=== PATIENT | female | born 1935 | race Two or more races ===

== ENCOUNTER 2017-08-10 13:59 | Inpatient (IN) | payer MEDICARE, BC ==
[~2017-08-10] VITALS: Ht 162.6 cm; Wt 49.9 kg
[~2017-08-10 13:59] MED LIST: ACTOS15 MG ORAL; CIMZIA400 MG SQ; DOXAZOSIN MESYLA4 MG ORAL; GABAPENTIN300 MG ORAL; LEFLUNOMIDE20 MG PO; METFORMIN HCL500 M1 ORAL; PROPYLTHIOURACIL ORAL
[2017-08-10 14:43] VITALS: BP 157/111
[2017-08-10 14:58] LABS: BASOPHILS % (AUTO) 1.1 % (0.0-2.0); EOSINOPHILS % (AUTO) 0.1 % (0.0-3.0); HEMATOCRIT 44.7 % (37.0-47.0); HEMOGLOBIN 14.7 G/DL (12.0-16.0); LYMPHOCYTES % (AUTO) 10.8 % (20.0-45.0); MEAN CORPUSCULAR VOLUME 89 FL (80-99); MONOCYTES % (AUTO) 8.1 % (1.0-10.0); NEUTROPHILS % (AUTO) 79.9 % (45.0-75.0); PLATELET COUNT 237 K/UL (150-450); RED BLOOD COUNT 5.03 M/UL (4.20-5.40); WHITE BLOOD COUNT 12.2 K/UL (4.8-10.8)
[2017-08-10 15:09] LABS: INR 0.9 (0.9-1.1)
[2017-08-10] MEDS ORDERED: LORazepam Inj 2mg/ml 1ml IV ONE ×2 (15:15→18:30)
[2017-08-10 15:29] LABS: ANION GAP 9 mmol/L (5-15); BLOOD UREA NITROGEN 16 mg/dL (7-18); CALCIUM 9.2 MG/DL (8.5-10.1); CARBON DIOXIDE 28 MMOL/L (21-32); CHLORIDE 104 MMOL/L (98-107); CREATININE 0.6 MG/DL (0.55-1.30); POTASSIUM 3.5 MMOL/L (3.5-5.1); SODIUM 141 MMOL/L (136-145)
[2017-08-10 15:42] LABS: ALANINE AMINOTRANSFERASE 28 U/L (12-78); ALBUMIN 3.8 G/DL (3.4-5.0); ALBUMIN/GLOBULIN RATIO 1.2 (1.0-2.7); ALKALINE PHOSPHATASE 54 U/L (46-116); ASPARTATE AMINO TRANSFERASE 20 U/L (15-37); BILIRUBIN,TOTAL 0.3 MG/DL (0.2-1.0); CKMB 3.9 NG/ML (0.0-3.6); CREATINE KINASE 159 U/L (26-308)
[2017-08-10 15:58] LABS: APPEARANCE,URINE CLEAR; BILIRUBIN, URINE NEGATIVE (NEGATIVE); COLOR,URINE PALE YELLOW; GLUCOSE, URINE (UA) 4+ (NEGATIVE); KETONES,URINE NEGATIVE (NEGATIVE); LEUKOCYTE ESTERASE ,URINE NEGATIVE (NEGATIVE); NITRITE,URINE NEGATIVE (NEGATIVE); PH,URINE 5 (4.5-8.0); PROTEIN,URINE 2+ (NEGATIVE); UROBILINOGEN,URINE NORMAL MG/DL (0.0-1.0)
[2017-08-10] MEDS ORDERED: lidocaine 5% patch (15:58)
[2017-08-10] MEDS ORDERED: MELOXICAM15 MG PO (15:58)
[2017-08-10] MEDS ORDERED: LANTUS SOL100 UNIT/1 SUBQ (15:58)
[2017-08-10] MEDS ORDERED: LISPRO SQ (15:58)
[2017-08-10] MEDS ORDERED: QUETIAPINE PO (15:58)
[2017-08-10] MEDS ORDERED: TYLENOL EXTRA500 MG ORAL (15:58)
[2017-08-10] MEDS ORDERED: HUMALOG SQ (15:58)
[2017-08-10] MEDS ORDERED: GLYXAMBI 10 MG1 EACH PO (15:58)
[2017-08-10] MEDS ORDERED: NAMENDA10 MG ORAL (15:58)
--- NOTE | 2017-08-10 16:25 | Diagnostic Imaging Report ---
Indication: Chest pain Technique: One view of the chest Comparison: none Findings: Bilateral lower lung hazy opacities may in part be accounted for by overlying soft tissue, but are suspicious for bilateral infiltrates. There is generalized interstitial prominence, which may be on the basis of senescent changes. The heart size is normal. The pleural spaces are grossly clear. Impression: Suspect bilateral basilar infiltrates. Correlate with clinical findings Other findings as noted
[2017-08-10 16:58] VITALS: BP 148/98
[2017-08-10 17:48] VITALS: BP 144/98
[2017-08-10] MEDS ORDERED: Aspirin Baby 81mg ORAL SCH (18:00)
[2017-08-10] MEDS: D5 1/2NS w/KCl 20mEq 1,000 ML IV SCH (18:36)
[2017-08-10 19:03] VITALS: BP 135/73
[2017-08-10 20:00] VITALS: BP 148/70
--- NOTE | 2017-08-10 20:13 | Emergency Room Report ---
History of Present Illness General Chief Complaint: Altered Level of Consciousness Source: Patient Present Illness HPI This patient is brought in from home. She is brought in by EMS. Per report, the caregiver called EMS for change in the patient's mental status. The patient herself is unable to give a history. Patient has a history of dementia. Patient is complaining of allover body pain. She has no other complaints. She is alert. She is demanding to leave. There is no other history available. Allergies: Coded Allergies: No Known Allergies (Unverified , 08/10/17) Patient History Past Medical History: see triage record, DM Social History: Denies: smoking, alcohol use, drug use Reviewed Nursing Documentation: PMH: Agreed; PSxH: Agreed Nursing Documentation-PMH Hx Diabetes: Yes Review of Systems All Other Systems: negative except mentioned in HPI Physical Exam Vital Signs Date Time Temp Pulse Resp B/P (MAP) Pulse Ox O2 Delivery O2 Flow Rate FiO2 08/10/17 13:51 97.8 114 20 152/92 94 Room Air 97.9 Sp02 EP Interpretation: reviewed, normal General Appearance: no apparent distress, alert, GCS 15, non-toxic Head: normocephalic, atraumatic Eyes: bilateral eye normal inspection, bilateral eye PERRL ENT: hearing grossly normal, normal pharynx, no angioedema, normal voice Neck: full range of motion, supple/symm/no masses Respiratory: chest non-tender, lungs clear, normal breath sounds, no respiratory distress, no retraction, no accessory muscle use, speaking full sentences Cardiovascular #1: no edema, tachycardia Gastrointestinal: normal bowel sounds, non tender, soft, non-distended, no guarding, no rebound Rectal: deferred Musculoskeletal: back normal, gait/station normal, normal range of motion, non- tender Neurologic: alert, oriented x3, responsive, motor strength/tone normal, sensory intact, speech normal Psychiatric: judgement/insight normal, memory normal, mood/affect normal, no suicidal/homicidal ideation Skin: normal color, no rash, warm/dry, well hydrated Medical Decision Making Diagnostic Impression: Primary Impression: Hypoglycemia ER Course This patient presented with hypoglycemia. This likely contributed to the patient's altered mental status. She was given D50 and food. She is also given IV fluids. The patient's blood sugar remained stable after this in the emergency department. The patient was agitated. The patient's family did arrive and states that this is typical behavior for her with her dementia. I did not identify an infectious etiology. CT of the head showed no acute findings. Patient is admitted for further monitoring for hypoglycemia. Laboratory Tests Test 08/10/17 14:35 08/10/17 15:13 08/10/17 15:14 White Blood Count 12.2 K/UL (4.8-10.8) H Red Blood Count 5.03 M/UL (4.20-5.40) Hemoglobin 14.7 G/DL (12.0-16.0) Hematocrit 44.7 % (37.0-47.0) Mean Corpuscular Volume 89 FL (80-99) Mean Corpuscular Hemoglobin 29.2 PG (27.0-31.0) Mean Corpuscular Hemoglobin Concent 32.8 G/DL (32.0-36.0) Red Cell Distribution Width 15.0 % (11.6-14.8) H Platelet Count 237 K/UL (150-450) Mean Platelet Volume 6.2 FL (6.5-10.1) L Neutrophils (%) (Auto) 79.9 % (45.0-75.0) H Lymphocytes (%) (Auto) 10.8 % (20.0-45.0) L Monocytes (%) (Auto) 8.1 % (1.0-10.0) Eosinophils (%) (Auto) 0.1 % (0.0-3.0) Basophils (%) (Auto) 1.1 % (0.0-2.0) Prothrombin Time 9.8 SEC (9.30-11.50) Prothrombin Time INR 0.9 (0.9-1.1) PTT 24 SEC (23-33) Sodium Level 141 MMOL/L (136-145) Potassium Level 3.5 MMOL/L (3.5-5.1) Chloride Level 104 MMOL/L (98-107) Carbon Dioxide Level 28 MMOL/L (21-32) Anion Gap 9 mmol/L (5-15) Blood Urea Nitrogen 16 mg/dL (7-18) Creatinine 0.6 MG/DL (0.55-1.30) Estimate Glomerular Filtration Rate mL/min (>60) Glucose Level 49 MG/DL (74-106) L Lactic Acid Level 1.80 mmol/L (0.66-2.22) Calcium Level 9.2 MG/DL (8.5-10.1) Magnesium Level 1.7 MG/DL (1.8-2.4) L Total Bilirubin 0.3 MG/DL (0.2-1.0) Aspartate Amino Transferase (AST) 20 U/L (15-37) Alanine Aminotransferase (ALT) 28 U/L (12-78) Alkaline Phosphatase 54 U/L (46-116) Total Creatine Kinase 159 U/L (26-308) Creatine Kinase MB 3.9 NG/ML (0.0-3.6) H Creatine Kinase MB Relative Index 2.4 Troponin I 0.061 ng/mL (0.000-0.056) Total Protein 6.9 G/DL (6.4-8.2) Albumin 3.8 G/DL (3.4-5.0) Globulin 3.1 g/dL Albumin/Globulin Ratio 1.2 (1.0-2.7) Urine Opiates Screen Negative (NEGATIVE) Urine Barbiturates Screen Negative (NEGATIVE) Phencyclidine (PCP) Screen Negative (NEGATIVE) Urine Amphetamines Screen Negative (NEGATIVE) Urine Benzodiazepines Screen Negative (NEGATIVE) Urine Cocaine Screen Negative (NEGATIVE) Urine Marijuana (THC) Screen Negative (NEGATIVE) Urine Color Pale yellow Urine Appearance Clear Urine pH 5 (4.5-8.0) Urine Specific [place] 1.010 (1.005-1.035) Urine Protein 2+ (NEGATIVE) H Urine Glucose (UA) 4+ (NEGATIVE) H Urine Ketones Negative (NEGATIVE) Urine Occult Blood 2+ (NEGATIVE) H Urine Nitrite Negative (NEGATIVE) Urine Bilirubin Negative (NEGATIVE) Urine Urobilinogen Normal MG/DL (0.0-1.0) Urine Leukocyte Esterase Negative (NEGATIVE) Urine RBC 5-10 /HPF (0 - 2) H Urine WBC 2-4 /HPF (0 - 2) Urine Squamous Epithelial Cells Few /LPF (NONE/OCC) Urine Amorphous Sediment Few /LPF (NONE) H Urine Bacteria Moderate /HPF (NONE) H EKG Diagnostic Results Rate: tachycardiac Rhythm: other - S.tachycardia ST Segments: no acute changes Rhythm Strip Diag. Results EP Interpretation: yes Rate: 100's Rhythm: NSR, no PVC's, no ectopy Chest X-Ray Diagnostic Results Chest X-Ray Diagnostic Results : Chest X-Ray Ordered: Yes # of Views/Limited/Complete: 1 View Indication: Other EP Interpretation: No Interpretation: other - Bilateral basilar opacities? Impression: Other Electronically Signed by: Anabel Last Vital Signs Date Time Temp Pulse Resp B/P (MAP) Pulse Ox O2 Delivery O2 Flow Rate FiO2 08/10/17 19:03 97.9 91 18 135/73 95 Room Air 97.9 Status: improved Disposition: ADMITTED INPATIENT Condition: Serious Referrals: NON PHYSICIAN (PCP) KATIUSKA LOWRY D.O. Aug 10, 2017 20:13
[2017-08-11] VITALS: BP 161/99
[2017-08-11 04:00] VITALS: BP 155/93
--- NOTE | 2017-08-11 05:45 | Consultation ---
DATE OF CONSULTATION: 08/10/2017 CARDIOLOGY CONSULTATION CONSULTING PHYSICIAN: Victorino Waller M.D. REQUESTING PHYSICIAN: Franki Penny M.D. REASON FOR CONSULTATION: Elevated troponin level. HISTORY OF PRESENT ILLNESS: This is an 82-year-old female. She lives at home with family members. She apparently was confused and altered today, although does have some degree of dementia and behavioral abnormalities at baseline according to family members, but her behavior today was different. She apparently was much more withdrawn and confused and had been complaining earlier pain all over. On arrival to the emergency room after being brought in by EMS, she was alert at times and demanding to leave. At some point, she became more agitated and was given IV lorazepam by the emergency room staff. Her CAT scan of the brain revealed no acute process. Laboratories including troponin level was somewhat elevated prompting this consultation. The patient was also hypoglycemic on admission and started on a D5 drip. PAST MEDICAL HISTORY: Insulin-requiring diabetes mellitus, cerebrovascular disease with dementia and agitation, hypertension, rheumatoid arthritis, and peripheral neuropathy. MEDICATIONS: Prior to admission, reviewed and reconciled. ALLERGIES: None known. FAMILY HISTORY: Noncontributory. SOCIAL HISTORY: No apparent history of smoking, alcohol, or substance abuse. REVIEW OF SYSTEMS: Cannot be reliably obtained from the patient at this time. PHYSICAL EXAMINATION: GENERAL: Thin, frail female, in no acute distress, confused, but responsive. VITAL SIGNS: Blood pressure 152/92 in the emergency room with heart rate 114, respiratory rate 20, and she was afebrile. Presently, blood pressure is 135/73, heart rate 91, respiratory rate 18, afebrile, and oxygen saturation on room air is 95% to 100%. HEENT: Temporal wasting. Pale conjunctivae. Dry mucous membranes. No thrush. NECK: Supple. No adenopathy. LUNGS: Clear. No breast masses. CARDIAC: Regular rhythm and rate. Normal S1 and S2 with a fourth heart sound. ABDOMEN: Soft and nontender. EXTREMITIES: No edema. Some arthritic joint changes noted on the extremities. LABORATORY AND DIAGNOSTIC DATA: White count 12.2 and hemoglobin 14.7. Urinalysis with 5-10 red cells, 2-4 white cells, and moderate bacteria. Magnesium 1.7. Potassium 3.5, BUN 16, creatinine 0.6, and glucose 49. Troponin 0.061. Albumin 3.8. IMPRESSION: 1. Toxic metabolic encephalopathy. 2. Hypoglycemia. 3. Polypharmacy with diabetic medications and insulin. 4. Insulin-requiring diabetes mellitus with neuropathy. 5. Hypomagnesemia. 6. Acute myocardial ischemia and possible myocardial infarction. 7. Leukocytosis. 8. Possible urinary tract infection. PLAN: 1. Cardiac monitoring. 2. Hold all diabetic medications, D5 drip. 3. Replace potassium and magnesium. 4. Insulin coverage by sliding scale. 5. Empiric antibiotics. 6. Metabolic profile including B12, folate, and thyroid function. 7. Serial troponin levels. 8. Anti-platelet therapy with aspirin. 9. Cardiac monitoring. 10. Beta-blockade. 11. We will try to expand database with further discussions with family members. 12. DVT prophylaxis. Victorino Waller M.D. DR: NICOLA JOB#: [id number] CC:
[2017-08-11] MEDS ORDERED: NovoLOG Insulin Flexpen SUBQ SCH (06:30)
[2017-08-11] MEDS: NovoLOG Insulin Flexpen SUBQ SCH ×4 (07:09→20:50)
[2017-08-11 08:00] VITALS: BP 144/73
[2017-08-11 08:09] LABS: BASOPHILS % (AUTO) 0.8 % (0.0-2.0); EOSINOPHILS % (AUTO) 1.1 % (0.0-3.0); HEMATOCRIT 43.7 % (37.0-47.0); HEMOGLOBIN 14.8 G/DL (12.0-16.0); LYMPHOCYTES % (AUTO) 14.6 % (20.0-45.0); MEAN CORPUSCULAR VOLUME 89 FL (80-99); MONOCYTES % (AUTO) 11.2 % (1.0-10.0); NEUTROPHILS % (AUTO) 72.4 % (45.0-75.0); PLATELET COUNT 207 K/UL (150-450); RED BLOOD COUNT 4.89 M/UL (4.20-5.40); RED CELL DISTRIBUTION WIDTH 15.5 % (11.6-14.8); WHITE BLOOD COUNT 7.6 K/UL (4.8-10.8)
[2017-08-11 08:36] LABS: ALANINE AMINOTRANSFERASE 28 U/L (12-78); ALBUMIN 3.6 G/DL (3.4-5.0); ALKALINE PHOSPHATASE 56 U/L (46-116); ANION GAP 10 mmol/L (5-15); ASPARTATE AMINO TRANSFERASE 23 U/L (15-37); BILIRUBIN,TOTAL 0.5 MG/DL (0.2-1.0); BLOOD UREA NITROGEN 12 mg/dL (7-18); CALCIUM 8.9 MG/DL (8.5-10.1); CARBON DIOXIDE 27 MMOL/L (21-32); CHLORIDE 102 MMOL/L (98-107); CHOLESTEROL 270 MG/DL (< 200); CREATININE 0.6 MG/DL (0.55-1.30); HDL CHOLESTEROL 136 MG/DL (40-60); POTASSIUM 3.4 MMOL/L (3.5-5.1); SODIUM 139 MMOL/L (136-145); TRIGLYCERIDES 97 MG/DL (30-150)
[2017-08-11] MEDS: Aspirin Baby 81mg ORAL SCH (08:49)
[2017-08-11] MEDS: Heparin 5000 units/ml inj SUBQ SCH ×2 (08:51→20:50)
--- NOTE | 2017-08-11 09:12 | Diagnostic Imaging Report ---
Indication: Altered mental status Technique: spiral acquisitions obtained through the brain. Angled axial and coronal 5 x 5 mm slices were reconstructed. No IV contrast utilized. Radiation dose was minimized using automated exposure control Total dose length product 1432.39 mGycm. CTDIvol(s) 70.38 mGy Comparison: none FINDINGS: No acute hemorrhage or edema. No mass effect or midline shift. There is age-related enlargement of the ventricles and extra axial CSF spaces. There is periventricular deep white matter ischemic change. Normal cruz-white differentiation. Visualized orbits are unremarkable. Visualized sinuses are unremarkable. Intact calvarium. IMPRESSION: Chronic and age-related changes. Negative for acute intracranial bleed or mass effect This agrees with the preliminary interpretation provided overnight by [facility]. The CT scanner at [facility] is accredited by the [employer] and the scans are performed using protocols designed to limit radiation exposure to as low as reasonably achievable to attain images of sufficient resolution adequate for diagnostic evaluation
[2017-08-11] MEDS: D5 1/2NS w/KCl 20mEq 1,000 ML IV SCH (10:28)
[2017-08-11 12:00] VITALS: BP 142/75
[2017-08-11] MEDS ORDERED: OLANZapine 2.5mg tab ORAL SCH (14:00)
--- NOTE | 2017-08-11 14:13 | Consultation ---
History of Present Illness General Date patient seen: Aug 11, 2017 Chief Complaint: Altered Level of Consciousness Present Illness HPI 82-year-old female with hx of dementia who is coming from home. The pt is severely confused, she is only oriented to self. the pt is agitated and is not following directions. the pt is disorganized and is unable to remain focus during the evaluation. the pts son arrived later, he stated that the pt is always confused and at times does not recognized the pt. the pts son is reluctant to Zyprexa during the day however he agreed to hs zyprexa. The pt gets agitated easily. the son stated there is no need for sitter nor medication. the son stated that he will have a "personal assistance" come and stay will her while she is in the hospital. Allergies: Coded Allergies: No Known Allergies (Unverified , 08/10/17) Medication History Scheduled Certolizumab Pegol (Cimzia), 400 MG SQ ONCE, (Reported) Doxazosin Mesylate* (Doxazosin Mesylate*), 4 MG ORAL HS, (Reported) Empagliflozin/Linagliptin (Glyxambi 10 mg-5 mg Tablet), 1 EACH PO DAILY, ( Reported) Gabapentin* (Gabapentin*), 300 MG ORAL BEDTIME, (Reported) Insulin Glargine (Lantus), 15 UNIT SUBQ BEDTIME, (Reported) Leflunomide (Leflunomide), 20 MG PO EVERY OTHER DAY, (Reported) Meloxicam* (Meloxicam*), 15 MG PO DAILY, (Reported) Memantine Hcl* (Namenda*), 20 MG ORAL DAILY, (Reported) Metformin Hcl* (Metformin Hcl*), 500 MG ORAL TID, (Reported) Pioglitazone Hcl* (Actos*), 15 MG ORAL DAILY, (Reported) [lispro/humalog], 6 UNIT SQ AC, (Reported) [lispro/humalog], 11 UNIT SQ AC, (Reported) [propyl thiouracil], 50 MG ORAL TID, (Reported) [quietapine], 25 MG PO AC, (Reported) Scheduled PRN Acetaminophen* (Tylenol Extra Strength*), 500 MG ORAL Q6H PRN for Mild Pain/ Temp > 100.5, (Reported) Miscellaneous Medications [lidocaine 5% patch], (Reported) Patient History Limited by: medical condition History Provided By: Patient, Family Member, Medical Record, PMD Healthcare decision maker Resuscitation status Full Code Advanced Directive on File Past Medical/Surgical History Past Medical/Surgical History: (1) Hypoglycemia (2) Altered mental status Review of Systems Psychiatric: Reports: prior hx, anxiety, depressed feelings, emotional problems , hallucinations Physical Exam General Appearance: WD/WN, no apparent distress, alert, confused, agitated Last 24 Hour Vital Signs Date Time Temp Pulse Resp B/P (MAP) Pulse Ox O2 Delivery O2 Flow Rate FiO2 08/11/17 08:49 99 160/80 08/11/17 08:00 105 08/11/17 08:00 98.2 95 20 144/73 95 Room Air 98.2 08/11/17 04:00 98 08/11/17 04:00 97.8 99 19 155/93 95 Room Air 97.8 08/11/17 00:00 97.7 96 18 161/99 95 Room Air 97.7 08/11/17 00:00 97 08/10/17 20:00 94 08/10/17 20:00 96.7 95 20 148/70 94 Room Air 96.7 08/10/17 19:45 97.9 91 18 135/73 95 Room Air 97.9 08/10/17 19:03 97.9 91 18 135/73 95 Room Air 97.9 08/10/17 17:48 97.9 116 23 144/98 98 Room Air 97.9 08/10/17 16:58 97.9 121 14 148/98 100 Room Air 97.9 08/10/17 14:43 97.9 101 20 157/111 100 Room Air 97.9 Intake and Output 08/10/17 08/11/17 19:00 07:00 Intake Total 10 ml Balance 10 ml Intake Oral 10 ml # Voids 5 Laboratory Tests Test 08/10/17 14:35 08/10/17 15:13 08/10/17 15:14 08/11/17 06:30 White Blood Count 12.2 K/UL (4.8-10.8) H 7.6 K/UL (4.8-10.8) Red Blood Count 5.03 M/UL (4.20-5.40) 4.89 M/UL (4.20-5.40) Hemoglobin 14.7 G/DL (12.0-16.0) 14.8 G/DL (12.0-16.0) Hematocrit 44.7 % (37.0-47.0) 43.7 % (37.0-47.0) Mean Corpuscular Volume 89 FL (80-99) 89 FL (80-99) Mean Corpuscular Hemoglobin 29.2 PG (27.0-31.0) 30.2 PG (27.0-31.0) Mean Corpuscular Hemoglobin Concent 32.8 G/DL (32.0-36.0) 33.8 G/DL (32.0-36.0) Red Cell Distribution Width 15.0 % (11.6-14.8) H 15.5 % (11.6-14.8) H Platelet Count 237 K/UL (150-450) 207 K/UL (150-450) Mean Platelet Volume 6.2 FL (6.5-10.1) L 6.5 FL (6.5-10.1) Neutrophils (%) (Auto) 79.9 % (45.0-75.0) H 72.4 % (45.0-75.0) Lymphocytes (%) (Auto) 10.8 % (20.0-45.0) L 14.6 % (20.0-45.0) L Monocytes (%) (Auto) 8.1 % (1.0-10.0) 11.2 % (1.0-10.0) H Eosinophils (%) (Auto) 0.1 % (0.0-3.0) 1.1 % (0.0-3.0) Basophils (%) (Auto) 1.1 % (0.0-2.0) 0.8 % (0.0-2.0) Prothrombin Time 9.8 SEC (9.30-11.50) Prothromb Time International Ratio 0.9 (0.9-1.1) Activated Partial Thromboplast Time 24 SEC (23-33) Sodium Level 141 MMOL/L (136-145) 139 MMOL/L (136-145) Potassium Level 3.5 MMOL/L (3.5-5.1) 3.4 MMOL/L (3.5-5.1) L Chloride Level 104 MMOL/L (98-107) 102 MMOL/L (98-107) Carbon Dioxide Level 28 MMOL/L (21-32) 27 MMOL/L (21-32) Anion Gap 9 mmol/L (5-15) 10 mmol/L (5-15) Blood Urea Nitrogen 16 mg/dL (7-18) 12 mg/dL (7-18) Creatinine 0.6 MG/DL (0.55-1.30) 0.6 MG/DL (0.55-1.30) Estimat Glomerular Filtration Rate mL/min (>60) mL/min (>60) Glucose Level 49 MG/DL (74-106) L 173 MG/DL (74-106) #H Lactic Acid Level 1.80 mmol/L (0.66-2.22) Calcium Level 9.2 MG/DL (8.5-10.1) 8.9 MG/DL (8.5-10.1) Magnesium Level 1.7 MG/DL (1.8-2.4) L Total Bilirubin 0.3 MG/DL (0.2-1.0) 0.5 MG/DL (0.2-1.0) Aspartate Amino Transf (AST/SGOT) 20 U/L (15-37) 23 U/L (15-37) Alanine Aminotransferase (ALT/SGPT) 28 U/L (12-78) 28 U/L (12-78) Alkaline Phosphatase 54 U/L (46-116) 56 U/L (46-116) Total Creatine Kinase 159 U/L (26-308) Creatine Kinase MB 3.9 NG/ML (0.0-3.6) H Creatine Kinase MB Relative Index 2.4 Troponin I 0.061 ng/mL (0.000-0.056) 0.069 ng/mL (0.000-0.056) Total Protein 6.9 G/DL (6.4-8.2) 7.2 G/DL (6.4-8.2) Albumin 3.8 G/DL (3.4-5.0) 3.6 G/DL (3.4-5.0) Globulin 3.1 g/dL 3.6 g/dL Albumin/Globulin Ratio 1.2 (1.0-2.7) 1.0 (1.0-2.7) Urine Opiates Screen Negative (NEGATIVE) Urine Barbiturates Screen Negative (NEGATIVE) Phencyclidine (PCP) Screen Negative (NEGATIVE) Urine Amphetamines Screen Negative (NEGATIVE) Urine Benzodiazepines Screen Negative (NEGATIVE) Urine Cocaine Screen Negative (NEGATIVE) Urine Marijuana (THC) Screen Negative (NEGATIVE) Urine Color Pale yellow Urine Appearance Clear Urine pH 5 (4.5-8.0) Urine Specific [place] 1.010 (1.005-1.035) Urine Protein 2+ (NEGATIVE) H Urine Glucose (UA) 4+ (NEGATIVE) H Urine Ketones Negative (NEGATIVE) Urine Occult Blood 2+ (NEGATIVE) H Urine Nitrite Negative (NEGATIVE) Urine Bilirubin Negative (NEGATIVE) Urine Urobilinogen Normal MG/DL (0.0-1.0) Urine Leukocyte Esterase Negative (NEGATIVE) Urine RBC 5-10 /HPF (0 - 2) H Urine WBC 2-4 /HPF (0 - 2) Urine Squamous Epithelial Cells Few /LPF (NONE/OCC) Urine Amorphous Sediment Few /LPF (NONE) H Urine Bacteria Moderate /HPF (NONE) H Hemoglobin A1c 6.6 % (4.3-6.0) H Pro-B-Type Natriuretic Peptide 443 pg/mL (0-125) H Triglycerides Level 97 MG/DL (30-150) Cholesterol Level 270 MG/DL (< 200) H LDL Cholesterol 118 mg/dL (<100) H HDL Cholesterol 136 MG/DL (40-60) H Cholesterol/HDL Ratio 2.0 (3.3-4.4) L Thyroid Stimulating Hormone (TSH) 0.595 uiU/mL (0.358-3.740) Free Thyroxine 0.94 NG/DL (0.76-1.46) Triiodothyronine (T3) Uptake Pending Test 08/11/17 10:45 Urine Opiates Screen Negative (NEGATIVE) Urine Barbiturates Screen Negative (NEGATIVE) Phencyclidine (PCP) Screen Negative (NEGATIVE) Urine Amphetamines Screen Negative (NEGATIVE) Urine Benzodiazepines Screen Negative (NEGATIVE) Urine Cocaine Screen Negative (NEGATIVE) Urine Marijuana (THC) Screen Negative (NEGATIVE) Microbiology Date/Time Source Procedure Growth Status 08/10/17 15:14 Urine,Clean Catch Urine Culture - Preliminary NO GROWTH Resulted Height (Feet): 5 Height (Inches): 4.00 Weight (Pounds): 110 Medications Current Medications Medications (Trade) Dose Ordered Sig/Janet Route PRN Reason Start Time Stop Time Status Last Admin Dose Admin Acetaminophen (Tylenol) 650 mg Q4H PRN ORAL Mild Pain/Temp > 100.5 08/10/17 22:45 09/09/17 22:44 08/11/17 08:50 Aspirin (ASA) 81 mg DAILY ORAL 08/11/17 09:00 09/10/17 08:59 08/11/17 08:49 Carvedilol (Coreg) 3.125 mg EVERY 12 HOURS ORAL 08/11/17 09:00 09/10/17 08:59 08/11/17 08:49 Ceftriaxone Sodium 1 gm/ Dextrose 55 ml @ 110 mls/hr Q24H IVPB 08/10/17 23:00 08/17/17 22:59 08/11/17 00:00 Dextrose (Dextrose 50%) 25 ml STAT PRN IV Hypoglycemia 08/10/17 22:45 09/09/17 22:44 Dextrose (Dextrose 50%) 50 ml STAT PRN IV Hypoglycemia 08/10/17 22:45 09/09/17 22:44 Gabapentin (Neurontin) 300 mg QHS ORAL 08/11/17 21:00 09/10/17 20:59 Heparin Sodium (Porcine) (Heparin 5000 units/ml) 5,000 units EVERY 12 HOURS SUBQ 08/11/17 09:00 09/10/17 08:59 08/11/17 08:51 Insulin Aspart (NovoLOG) BEFORE MEALS AND HS SUBQ 08/11/17 06:30 09/10/17 06:29 08/11/17 12:00 Olanzapine (ZyPREXA) 2.5 mg ONCE ORAL 08/11/17 14:00 08/11/17 16:00 Olanzapine (ZyPREXA) 5 mg BEDTIME ORAL 08/11/17 21:00 09/10/17 20:59 Assessment/Plan Status: unchanged Assessment/Plan dementia with behavioral disturbance Encephalopathy -zyprexa 2.5 x 1 time -zyprexa 5mg qhs -Elizabeth Metcalf M.D. Aug 11, 2017 14:13
--- NOTE | 2017-08-11 15:00 | History and Physical Report ---
DATE OF ADMISSION: 08/10/2017 CHIEF COMPLAINT: Altered mental status and hypoglycemia. HISTORY OF PRESENT ILLNESS: The patient is a pleasant 82-year-old female, who is transferred from assisted living with complaints of confusion. She apparently has been more somnolent, lethargic, and inappropriate. She does have a history of dementia. The family noted that this was a significant change from her baseline. On evaluation in the emergency room, she had a CAT scan of the head that showed no acute process. She was reportedly hypoglycemic in the field. She was started on D5 and is now admitted. She had an elevated troponin of 0.069, but denies any chest pain. PAST MEDICAL HISTORY: Significant for history of diabetes, dementia, rheumatoid arthritis, hypertension, and history of neuropathy. PAST SURGICAL HISTORY: None. CURRENT MEDICATIONS: Reconciled and reviewed. ALLERGIES: None. FAMILY HISTORY: None. SOCIAL HISTORY: There is no known history of tobacco, ethanol, or drugs. REVIEW OF SYSTEMS: Unobtainable as the patient is confused. PHYSICAL EXAMINATION: VITAL SIGNS: Temperature 98 degrees, pulse 98, respirations 19, and blood pressure 155/93. GENERAL: The patient is well developed, no apparent distress. She is awake, alert, answers questions appropriately, and does follow simple commands. HEENT: Pupils are equal, round, and reactive to light. Oropharynx clear. NECK: Supple. HEART: Regular rate and rhythm. LUNGS: Clear. ABDOMEN: Soft, nontender, and nondistended. EXTREMITIES: Without clubbing, cyanosis, or edema. LABORATORY DATA: Her potassium was 3.4, sodium 139, glucose 173, A1c was 6.6. Troponin 0.069. Natriuretic peptide level was 443. LFTs were unremarkable. ASSESSMENT: This is a pleasant female, with complaints of altered mental status. 1. Altered mental status. 2. Toxic metabolic encephalopathy. 3. Acute [place]. 4. Dementia. 5. History of rheumatoid arthritis. 6. History of hypertension and diabetes. PLAN: 1. IV hydration with dextrose. 2. Monitor blood sugars. 3. Hold insulin and diabetic treatment for now. 4. We will trend troponins. 5. Obtain neurologic evaluation, Cardiology consultation for elevated troponin. Franki Penny M.D. DR: MALCOLM JOB#: [id number] CC:
[2017-08-11 16:00] VITALS: BP 133/79
[2017-08-11 20:00] VITALS: BP 168/89
[2017-08-11] MEDS: cefTRIAXone 1 GM in D5W 55 ML IVPB SCH ×3 (23:33)
[2017-08-12] VITALS (8 sets, daily range): BP systolic 128–156; BP diastolic 77–102
--- NOTE | 2017-08-12 02:45 | Progress Note ---
DATE: 08/11/2017 CARDIOLOGY PROGRESS NOTE SUBJECTIVE: The patient was seen and evaluated. Case was discussed with her son by telephone. The patient is still confused and withdrawn and lethargic. She did receive lorazepam in the emergency room. She has not had any signs of shortness of breath and has not complained of chest pain. OBJECTIVE: VITAL SIGNS: Blood pressure ranging from 155/93 to 133/79, heart rate 95 to 100, respiratory rate 20, and afebrile. NECK: Supple. LUNGS: Clear. CARDIAC: Regular rhythm and rate. Normal S1 and S2 with a fourth heart sound. ABDOMEN: Soft. EXTREMITIES: No edema. LABORATORY DATA: Notable for potassium 3.4, BUN 12, and creatinine 0.6. Hemoglobin A1c 6.6. Troponin is now 0.069. Pro-natriuretic peptide 443. Total cholesterol 270 with LDL 118 and HDL 136. TSH is 0.6. CT scan of the brain with no acute process. Urine tox screen negative. IMPRESSION: 1. Toxic and metabolic encephalopathy with altered mental status. 2. Possible acute myocardial infarction versus acute myocardial ischemia. 3. History of rheumatoid arthritis. 4. Hypertensive heart disease. 5. Insulin-requiring diabetes mellitus with hypoglycemia. PLAN: 1. Avoid benzodiazepine with sedation. 2. Discontinue intravenous fluids. 3. Restart and titrate diabetic regimen in a stepwise fashion. 4. DVT prophylaxis. 5. Beta-blockade. 6. Anti-platelet therapy with aspirin. Victorino Waller M.D. DR: KAYLI JOB#: [id number] CC:
[2017-08-12] MEDS: NovoLOG Insulin Flexpen SUBQ SCH ×4 (06:13→20:41)
[2017-08-12] MEDS: Aspirin Baby 81mg ORAL SCH (08:40)
[2017-08-12] MEDS: Heparin 5000 units/ml inj SUBQ SCH ×2 (08:42→20:42)
[2017-08-12] MEDS: metFORMIN 500mg tab ORAL SCH ×3 (08:42→17:59)
[2017-08-12 08:54] LABS: ANION GAP 14 mmol/L (5-15); BLOOD UREA NITROGEN 28 mg/dL (7-18); CALCIUM 9.7 MG/DL (8.5-10.1); CARBON DIOXIDE 25 MMOL/L (21-32); CHLORIDE 102 MMOL/L (98-107); CKMB 5.9 NG/ML (0.0-3.6); CREATININE 0.9 MG/DL (0.55-1.30); POTASSIUM 3.4 MMOL/L (3.5-5.1); SODIUM 140 MMOL/L (136-145)
--- NOTE | 2017-08-12 12:19 | General Progress Note ---
Assessment/Plan Problem List: (1) Acute myocardial infarction ICD Codes: I21.9 - Acute myocardial infarction, unspecified SNOMED: 64498512 (2) Hypoglycemia ICD Codes: E16.2 - Hypoglycemia, unspecified SNOMED: 438460459 (3) Altered mental status ICD Codes: R41.82 - Altered mental status, unspecified SNOMED: 655219352 Assessment/Plan anti plt rx sitter consider mri Subjective ROS Limited/Unobtainable: No Constitutional: Reports: malaise, weakness HEENT: Reports: no symptoms Cardiovascular: Reports: no symptoms Respiratory: Reports: no symptoms Gastrointestinal/Abdominal: Reports: no symptoms Genitourinary: Reports: no symptoms Neurologic/Psychiatric: Reports: no symptoms Endocrine: Reports: no symptoms Hematologic/Lymphatic: Reports: no symptoms Allergies: Coded Allergies: No Known Allergies (Unverified , 08/10/17) All Systems: reviewed and negative except above Subjective remains confused. per caregiver pts baseline ? no chest pain or sob. Objective Last 24 Hour Vital Signs Date Time Temp Pulse Resp B/P (MAP) Pulse Ox O2 Delivery O2 Flow Rate FiO2 08/12/17 11:35 97.1 98 18 154/88 99 97.1 08/12/17 11:31 97.3 08/12/17 08:40 111 152/83 08/12/17 08:00 97.3 111 18 152/83 100 Room Air 97.3 08/12/17 07:32 97.3 08/12/17 04:00 97.5 113 21 155/102 96 Room Air 97.5 08/12/17 04:00 116 08/12/17 00:00 97.9 96 20 156/90 95 Room Air 97.9 08/12/17 00:00 102 08/11/17 20:47 107 133/79 08/11/17 20:00 124 08/11/17 20:00 98.7 115 18 168/89 96 Room Air 98.7 08/11/17 16:00 98.3 100 20 133/79 95 Room Air 98.3 08/11/17 16:00 107 Intake and Output 08/11/17 08/12/17 19:00 07:00 Intake Total 600 ml 240 ml Output Total 100 ml Balance 500 ml 240 ml Intake Oral 600 ml 240 ml Output Urine Total 100 ml # Voids 2 1 # Bowel Movements 1 Laboratory Tests 08/12/17 07:00: Sodium Level 140, Potassium Level 3.4L, Chloride Level 102, Carbon Dioxide Level 25, Anion Gap 14, Blood Urea Nitrogen 28H, Creatinine 0.9, Estimat Glomerular Filtration Rate , Glucose Level 213H, Calcium Level 9.7, Creatine Kinase MB 5.9H, Troponin I 0.038 Height (Feet): 5 Height (Inches): 4.00 Weight (Pounds): 110 General Appearance: WD/WN, alert, confused Neck: supple Cardiovascular: normal rate, regular rhythm Respiratory/Chest: chest wall non-tender, lungs clear, normal breath sounds Abdomen: normal bowel sounds, non tender, soft Edema: no edema noted Arm (L), no edema noted Arm (R), no edema noted Leg (L), no edema noted Leg (R), no edema noted Pedal (L), no edema noted Pedal (R), no edema noted Generalized YOUSIF RODRIGUEZ Aug 12, 2017 12:19
[2017-08-12] MEDS ORDERED: Gadavist 7.5mMol/7.5ml vial IV PRN (21:15)
[2017-08-12] MEDS ORDERED: Lisinopril 10mg tab ORAL SCH (21:35)
[2017-08-12] MEDS: cefTRIAXone 1 GM in D5W 55 ML IVPB SCH (22:02)
--- NOTE | 2017-08-13 02:00 | Progress Note ---
DATE: 08/12/2017 CARDIOLOGY PROGRESS NOTE SUBJECTIVE: The patient remains confused at times. A sitter has been ordered for safety to prevent falls. OBJECTIVE: VITAL SIGNS: Blood pressure is 154/88, heart rate 98, respiratory rate 18, and she is afebrile. Monitored rhythm sinus and sinus tachycardia. LUNGS: Bilateral breath sounds. No wheezing. HEART: Regular rhythm and rate. Normal S1 and S2. ABDOMEN: Soft. EXTREMITIES: No edema. LABORATORY DATA: Potassium 3.4, BUN 28, and creatinine 0.9. Troponin down to 0.038. IMPRESSION: 1. Acute myocardial infarction. 2. Encephalopathy. 3. Mild hypokalemia, resolved. 4. Hypoglycemia, now with rising blood glucose levels. 5. Secondary sinus tachycardia. 6. History of rheumatoid arthritis. PLAN: 1. Avoid sedation. 2. Continue beta-emmie and aspirin. 3. Replace potassium. 4. Titrate medications for optimal blood pressure control. 5. Titration of diabetic regimen per Dr. Musa. Victorino Waller M.D. DR: China JOB#: [id number] CC:
[2017-08-13] MEDS: metFORMIN 500mg tab ORAL SCH ×3 (06:39→16:42)
[2017-08-13] MEDS: NovoLOG Insulin Flexpen SUBQ SCH ×4 (06:40→20:48)
--- NOTE | 2017-08-13 06:46 | General Progress Note ---
Assessment/Plan Problem List: (1) Hypoglycemia ICD Codes: E16.2 - Hypoglycemia, unspecified SNOMED: 247542872 (2) Altered mental status ICD Codes: R41.82 - Altered mental status, unspecified SNOMED: 170879321 Assessment/Plan continue Metformin / Actos / Januvia continue NISS Subjective ROS Limited/Unobtainable: Yes Allergies: Coded Allergies: No Known Allergies (Unverified , 08/10/17) Subjective events noted BG values improved Objective Last 24 Hour Vital Signs Date Time Temp Pulse Resp B/P (MAP) Pulse Ox O2 Delivery O2 Flow Rate FiO2 08/13/17 04:00 95 08/13/17 00:00 81 08/12/17 23:53 98.0 84 20 128/77 99 Room Air 98.0 08/12/17 22:02 150/88 08/12/17 20:39 104 150/88 08/12/17 20:00 101 08/12/17 20:00 98.0 100 20 154/90 97 Room Air 98.0 08/12/17 20:00 98.0 100 20 154/90 97 Room Air 98.0 08/12/17 16:00 97.6 104 18 150/88 99 Room Air 97.6 08/12/17 12:30 97.1 08/12/17 11:35 97.1 98 18 154/88 99 97.1 08/12/17 11:31 97.3 08/12/17 08:40 111 152/83 08/12/17 08:00 97.3 111 18 152/83 100 Room Air 97.3 Intake and Output 08/12/17 08/13/17 19:00 07:00 Intake Total 580 ml Balance 580 ml Intake Oral 580 ml # Voids 5 2 Laboratory Tests 08/12/17 07:00: Sodium Level 140, Potassium Level 3.4L, Chloride Level 102, Carbon Dioxide Level 25, Anion Gap 14, Blood Urea Nitrogen 28H, Creatinine 0.9, Estimat Glomerular Filtration Rate , Glucose Level 213H, Calcium Level 9.7, Creatine Kinase MB 5.9H, Troponin I 0.038 Height (Feet): 5 Height (Inches): 4.00 Weight (Pounds): 110 General Appearance: no apparent distress Neck: normal alignment Cardiovascular: normal rate Respiratory/Chest: lungs clear Abdomen: normal bowel sounds Objective Current Medications Medications (Trade) Dose Ordered Sig/Janet Route PRN Reason Start Time Stop Time Status Last Admin Dose Admin Acetaminophen (Tylenol) 650 mg Q4H PRN ORAL Mild Pain/Temp > 100.5 08/10/17 22:45 09/09/17 22:44 08/12/17 20:38 Aspirin (ASA) 81 mg DAILY ORAL 08/11/17 09:00 09/10/17 08:59 08/12/17 08:40 Carvedilol (Coreg) 12.5 mg EVERY 12 HOURS ORAL 08/13/17 09:00 09/12/17 08:59 Ceftriaxone Sodium 1 gm/ Dextrose 55 ml @ 110 mls/hr Q24H IVPB 08/10/17 23:00 08/17/17 22:59 08/12/17 22:02 Dextrose (Dextrose 50%) 25 ml STAT PRN IV Hypoglycemia 08/10/17 22:45 09/09/17 22:44 Dextrose (Dextrose 50%) 50 ml STAT PRN IV Hypoglycemia 08/10/17 22:45 09/09/17 22:44 Gabapentin (Neurontin) 300 mg QHS ORAL 08/11/17 21:00 09/10/17 20:59 08/12/17 20:37 Gadobutrol (Gadavist) 7.5 mmol NOW PRN IV Radiology Procedure 08/12/17 21:15 08/14/17 23:59 Heparin Sodium (Porcine) (Heparin 5000 units/ml) 5,000 units EVERY 12 HOURS SUBQ 08/11/17 09:00 09/10/17 08:59 08/12/17 20:42 Insulin Aspart (NovoLOG) BEFORE MEALS AND HS SUBQ 08/11/17 06:30 09/10/17 06:29 08/13/17 06:40 Lisinopril (Zestril) 10 mg DAILY ORAL 08/13/17 09:00 09/12/17 08:59 Metformin HCl (Glucophage) 500 mg TIAC ORAL 08/12/17 07:30 09/11/17 07:29 08/13/17 06:39 Pioglitazone HCl (Actos) 15 mg ACBREAKFAST ORAL 08/12/17 08:00 09/11/17 07:59 08/13/17 06:39 Sitagliptin Phosphate (Januvia) 100 mg ACBREAKFAST ORAL 08/12/17 07:30 5/28/18 07:29 08/13/17 06:39 Item Value Date Time Bedside Blood Glucose 155 mg/dl H 08/13/17 0640 BETTE ZAMARRIPA Aug 13, 2017 06:46
[2017-08-13 08:00] VITALS: BP 148/92
[2017-08-13] MEDS: Aspirin Baby 81mg ORAL SCH (08:20)
[2017-08-13] MEDS: Lisinopril 10mg tab ORAL SCH (08:21)
[2017-08-13] MEDS: Heparin 5000 units/ml inj SUBQ SCH ×2 (08:22→20:48)
--- NOTE | 2017-08-13 11:02 | General Progress Note ---
Assessment/Plan Problem List: (1) Acute myocardial infarction ICD Codes: I21.9 - Acute myocardial infarction, unspecified SNOMED: 81918245 (2) Hypoglycemia ICD Codes: E16.2 - Hypoglycemia, unspecified SNOMED: 571004253 (3) Altered mental status ICD Codes: R41.82 - Altered mental status, unspecified SNOMED: 809717366 Status: stable, progressing Assessment/Plan anti plt rx sitter/caregiver titrate bp rx dc planning Subjective ROS Limited/Unobtainable: Yes Constitutional: Reports: no symptoms HEENT: Reports: no symptoms Cardiovascular: Reports: no symptoms Respiratory: Reports: no symptoms Gastrointestinal/Abdominal: Reports: no symptoms Genitourinary: Reports: no symptoms Neurologic/Psychiatric: Reports: anxiety, pre-existing deficit Endocrine: Reports: no symptoms Hematologic/Lymphatic: Reports: no symptoms Allergies: Coded Allergies: No Known Allergies (Unverified , 08/10/17) All Systems: reviewed and negative except above Subjective pleasantly confused. per son pt is close to baseline. he notes gradually progressive decline in memory/cognition. Objective Last 24 Hour Vital Signs Date Time Temp Pulse Resp B/P (MAP) Pulse Ox O2 Delivery O2 Flow Rate FiO2 08/13/17 08:21 148/92 08/13/17 08:21 86 148/92 08/13/17 08:00 97.8 86 22 148/92 96 Room Air 97.8 08/13/17 08:00 93 08/13/17 04:00 95 08/13/17 00:00 81 08/12/17 23:53 98.0 84 20 128/77 99 Room Air 98.0 08/12/17 22:02 150/88 08/12/17 20:39 104 150/88 08/12/17 20:00 101 08/12/17 20:00 98.0 100 20 154/90 97 Room Air 98.0 08/12/17 20:00 98.0 100 20 154/90 97 Room Air 98.0 08/12/17 16:00 97.6 104 18 150/88 99 Room Air 97.6 08/12/17 12:30 97.1 08/12/17 11:35 97.1 98 18 154/88 99 97.1 08/12/17 11:31 97.3 Intake and Output 08/12/17 08/13/17 19:00 07:00 Intake Total 580 ml Balance 580 ml Intake Oral 580 ml # Voids 5 2 Height (Feet): 5 Height (Inches): 4.00 Weight (Pounds): 110 Objective General Appearance: WD/WN, alert, confused Neck: supple Cardiovascular: normal rate, regular rhythm Respiratory/Chest: chest wall non-tender, lungs clear, normal breath sounds Abdomen: normal bowel sounds, non tender, soft Edema: no edema noted Arm (L), no edema noted Arm (R), no edema noted Leg (L), no edema noted Leg (R), no edema noted Pedal (L), no edema noted Pedal (R), no edema noted Generalized YOUSIF RODRIGUEZ Aug 13, 2017 11:02
[2017-08-13 12:00] VITALS: BP 128/85
[2017-08-13 16:00] VITALS: BP 132/84
--- NOTE | 2017-08-13 17:50 | Cardiology Report ---
APPROVED REPORT EKG Measurement Heart [id number] [id number] Sinus tachycardia Biatrial enlargement Septal infarct, age undetermined Abnormal ECG
[2017-08-13 20:00] VITALS: BP 120/77
[2017-08-13] MEDS: cefTRIAXone 1 GM in D5W 55 ML IVPB SCH (23:33)
[2017-08-14] VITALS: BP 113/60
--- NOTE | 2017-08-14 01:30 | Progress Note ---
DATE: 08/13/2017 CARDIOLOGY PROGRESS NOTE SUBJECTIVE: The patient is awake and alert. She is concerned about her elevated troponin levels. I have explained to her that there may have been some mild degree of ____ blood flow to her heart, but no significant damage has been noted. OBJECTIVE: GENERAL: . According the patient's son, she is less confused. VITAL SIGNS: Blood pressure 148/92 to 120/77, pulse 88, respiratory rate 19, and afebrile. LUNGS: Clear. CARDIAC: Regular. Normal S1 and S2. ABDOMEN: Soft. EXTREMITIES: No edema. Glucose control improved. IMPRESSION: 1. Acute myocardial ischemia and possible non-ST elevation infarction. 2. Hypoglycemia in this setting of non-insulin requiring diabetes mellitus, now improved. 3. Secondary sinus tachycardia, resolved. 4. Acute encephalopathy in the setting of underlying dementia, improved. 5. Hypokalemia. 6. History of rheumatoid arthritis. PLAN: 1. Continue aspirin, beta-emmie, and angiotensin-converting enzyme inhibitor with titration. 2. Continue multidrug diabetic regimen per Dr. Lara. If possible to discontinue Actos that would be preferable in view of her underlying cardiovascular disease. 3. Await MRI of the brain. 4. Consider myocardial perfusion scan to follow. Victorino Waller M.D. DR: NICOLA JOB#: [id number] CC:
[2017-08-14 04:00] VITALS: BP 116/70
[2017-08-14] MEDS: metFORMIN 500mg tab ORAL SCH ×3 (05:54→16:30)
[2017-08-14] MEDS: NovoLOG Insulin Flexpen SUBQ SCH ×3 (05:55→16:30)
--- NOTE | 2017-08-14 06:58 | General Progress Note ---
Assessment/Plan Problem List: (1) Hypoglycemia ICD Codes: E16.2 - Hypoglycemia, unspecified SNOMED: 751856887 (2) Altered mental status ICD Codes: R41.82 - Altered mental status, unspecified SNOMED: 880651693 Assessment/Plan continue Metformin / Actos / Januvia regimen as is continue NISS only during stay NO need for insulin after DC tight glycemic control is NOT indicated as it will increase risk of hypoglycemia Subjective ROS Limited/Unobtainable: Yes Allergies: Coded Allergies: No Known Allergies (Unverified , 08/10/17) Subjective events noted BG values overall stable - spiked to 200+ yesterday Objective Last 24 Hour Vital Signs Date Time Temp Pulse Resp B/P (MAP) Pulse Ox O2 Delivery O2 Flow Rate FiO2 08/14/17 04:00 72 08/14/17 04:00 97.5 70 18 116/70 94 97.5 08/14/17 00:00 97.7 78 17 113/60 97 97.7 08/14/17 00:00 80 08/13/17 20:46 88 120/77 08/13/17 20:00 97.7 88 19 120/77 95 97.7 08/13/17 20:00 96 08/13/17 16:00 97.8 92 20 132/84 98 Room Air 97.8 08/13/17 16:00 77 08/13/17 12:00 98.0 89 20 128/85 98 Room Air 98.0 08/13/17 12:00 82 08/13/17 08:21 148/92 08/13/17 08:21 86 148/92 08/13/17 08:00 97.8 86 22 148/92 96 Room Air 97.8 08/13/17 08:00 93 Intake and Output 08/13/17 08/14/17 19:00 07:00 Intake Total 545 ml Balance 545 ml Intake Oral 490 ml IV Total 55 ml # Voids 5 # Bowel Movements 1 Height (Feet): 5 Height (Inches): 4.00 Weight (Pounds): 110 General Appearance: no apparent distress Neck: normal alignment Cardiovascular: normal rate Respiratory/Chest: lungs clear Abdomen: normal bowel sounds Pelvis: normal external exam Objective Current Medications Medications (Trade) Dose Ordered Sig/Janet Route PRN Reason Start Time Stop Time Status Last Admin Dose Admin Acetaminophen (Tylenol) 650 mg Q4H PRN ORAL Mild Pain/Temp > 100.5 08/10/17 22:45 09/09/17 22:44 08/13/17 20:47 Aspirin (ASA) 81 mg DAILY ORAL 08/11/17 09:00 09/10/17 08:59 08/13/17 08:20 Carvedilol (Coreg) 12.5 mg EVERY 12 HOURS ORAL 08/13/17 09:00 09/12/17 08:59 08/13/17 20:46 Ceftriaxone Sodium 1 gm/ Dextrose 55 ml @ 110 mls/hr Q24H IVPB 08/10/17 23:00 08/17/17 22:59 08/13/17 23:33 Dextrose (Dextrose 50%) 25 ml STAT PRN IV Hypoglycemia 08/10/17 22:45 09/09/17 22:44 Dextrose (Dextrose 50%) 50 ml STAT PRN IV Hypoglycemia 08/10/17 22:45 09/09/17 22:44 Gabapentin (Neurontin) 300 mg QHS ORAL 08/11/17 21:00 09/10/17 20:59 08/13/17 20:47 Gadobutrol (Gadavist) 7.5 mmol NOW PRN IV Radiology Procedure 08/12/17 21:15 08/14/17 23:59 Heparin Sodium (Porcine) (Heparin 5000 units/ml) 5,000 units EVERY 12 HOURS SUBQ 08/11/17 09:00 09/10/17 08:59 08/13/17 20:48 Insulin Aspart (NovoLOG) BEFORE MEALS AND HS SUBQ 08/11/17 06:30 09/10/17 06:29 08/13/17 20:48 Lisinopril (Zestril) 10 mg DAILY ORAL 08/13/17 09:00 09/12/17 08:59 08/13/17 08:21 Metformin HCl (Glucophage) 500 mg TIAC ORAL 08/12/17 07:30 09/11/17 07:29 08/14/17 05:54 Pioglitazone HCl (Actos) 15 mg ACBREAKFAST ORAL 08/12/17 08:00 09/11/17 07:59 08/14/17 05:54 Sitagliptin Phosphate (Januvia) 100 mg ACBREAKFAST ORAL 08/12/17 07:30 09/11/17 07:29 08/14/17 05:54 Item Value Date Time Bedside Blood Glucose 102 mg/dl 08/14/17 0630 Bedside Blood Glucose 252 mg/dl H 08/13/17 2100 Bedside Blood Glucose 271 mg/dl H 08/13/17 1644 Bedside Blood Glucose 161 mg/dl H 08/13/17 1144 Bedside Blood Glucose 155 mg/dl H 08/13/17 0640 BETTE ZAMARRIPA Aug 14, 2017 06:58
[2017-08-14 08:00] VITALS: BP 140/77
--- NOTE | 2017-08-14 08:03 | General Progress Note ---
Assessment/Plan Problem List: (1) Acute myocardial infarction ICD Codes: I21.9 - Acute myocardial infarction, unspecified SNOMED: 67114768 (2) Hypoglycemia ICD Codes: E16.2 - Hypoglycemia, unspecified SNOMED: 247938202 (3) Altered mental status ICD Codes: R41.82 - Altered mental status, unspecified SNOMED: 988686384 Status: stable, progressing Assessment/Plan anti plt rx b-blockade mri consider stress test per cards sitter/caregiver titrate bp rx dc planning Subjective ROS Limited/Unobtainable: Yes Constitutional: Reports: malaise, weakness HEENT: Reports: no symptoms Cardiovascular: Reports: no symptoms Respiratory: Reports: no symptoms Gastrointestinal/Abdominal: Reports: no symptoms Genitourinary: Reports: no symptoms Neurologic/Psychiatric: Reports: pre-existing deficit Endocrine: Reports: no symptoms Hematologic/Lymphatic: Reports: no symptoms Allergies: Coded Allergies: No Known Allergies (Unverified , 08/10/17) All Systems: reviewed and negative except above Subjective no real change. confused but redirectable. labs and mri pending. Objective Last 24 Hour Vital Signs Date Time Temp Pulse Resp B/P (MAP) Pulse Ox O2 Delivery O2 Flow Rate FiO2 08/14/17 04:00 72 08/14/17 04:00 97.5 70 18 116/70 94 97.5 08/14/17 00:00 97.7 78 17 113/60 97 97.7 08/14/17 00:00 80 08/13/17 20:46 88 120/77 08/13/17 20:00 97.7 88 19 120/77 95 97.7 08/13/17 20:00 96 08/13/17 16:00 97.8 92 20 132/84 98 Room Air 97.8 08/13/17 16:00 77 08/13/17 12:00 98.0 89 20 128/85 98 Room Air 98.0 08/13/17 12:00 82 08/13/17 08:21 148/92 08/13/17 08:21 86 148/92 Intake and Output 08/13/17 08/14/17 19:00 07:00 Intake Total 545 ml Balance 545 ml Intake Oral 490 ml IV Total 55 ml # Voids 6 # Bowel Movements 1 1 Height (Feet): 5 Height (Inches): 4.00 Weight (Pounds): 110 Objective General Appearance: WD/WN, alert, confused Neck: supple Cardiovascular: normal rate, regular rhythm Respiratory/Chest: chest wall non-tender, lungs clear, normal breath sounds Abdomen: normal bowel sounds, non tender, soft Edema: no edema noted Arm (L), no edema noted Arm (R), no edema noted Leg (L), no edema noted Leg (R), no edema noted Pedal (L), no edema noted Pedal (R), no edema noted Generalized YOUSIF RODRIGUEZ Aug 14, 2017 08:02
[2017-08-14 08:56] LABS: BASOPHILS % (AUTO) 1.2 % (0.0-2.0); EOSINOPHILS % (AUTO) 3.2 % (0.0-3.0); HEMATOCRIT 47.4 % (37.0-47.0); HEMOGLOBIN 15.3 G/DL (12.0-16.0); LYMPHOCYTES % (AUTO) 22.2 % (20.0-45.0); MEAN CORPUSCULAR VOLUME 91 FL (80-99); MONOCYTES % (AUTO) 10.5 % (1.0-10.0); NEUTROPHILS % (AUTO) 62.9 % (45.0-75.0); PLATELET COUNT 244 K/UL (150-450); RED BLOOD COUNT 5.21 M/UL (4.20-5.40); RED CELL DISTRIBUTION WIDTH 15.5 % (11.6-14.8); WHITE BLOOD COUNT 7.3 K/UL (4.8-10.8)
--- NOTE | 2017-08-14 09:03 | Consultation ---
DATE OF CONSULTATION: 08/12/2017 ENDOCRINOLOGY CONSULTATION CONSULTING PHYSICIAN: Tez Musa M.D. REFERRING PHYSICIAN: Victorino Waller M.D. REASON FOR CONSULTATION: Diabetes management and history of anemia. HISTORY OF PRESENT ILLNESS: The patient is an 82-year-old female with past medical history of diabetes with dementia with confusion, and altered mental status. She was more somnolent and lethargic. The patient was found to be hypoglycemic. The CT of the brain was negative. She was admitted to the floor for observation and treatment. Glucose is over 200. Endocrinology was consulted in order to assist in the management of diabetes. PAST MEDICAL HISTORY: 1. Diabetes. 2. Dementia. 3. Rheumatoid arthritis. 4. Hypertension. 5. Neuropathy. PAST SURGICAL HISTORY: None. MEDICATIONS: Reviewed and reconciled. Diabetic medications Actos, metformin, and insulin. ALLERGIES TO MEDICATION: None. FAMILY HISTORY: Noncontributory. SOCIAL HISTORY: Lives in assisted living. No smoking. No alcohol. No drug use. REVIEW OF SYSTEMS: Difficult to obtain due to the patient's confusion. PHYSICAL EXAMINATION: VITAL SIGNS: Blood pressure is 140/80, pulse of 80, temperature 98.2, and respiratory rate of 18. HEENT: Pupils are equal and reactive to light. Sclerae is anicteric. NECK: No JVD. HEART: Regular. LUNGS: Clear. ABDOMEN: Positive bowel sounds. SKIN: No clubbing, cyanosis, or edema. LABORATORY VALUES: Sodium 139, potassium 3.4, chloride 102, bicarbonate 27, BUN 12, creatinine 0.6, and glucose 173. Hemoglobin A1c of 6.6. TSH of 0.94. DIAGNOSES: 1. Altered mental status. 2. Hypoglycemia. 3. Diabetes out of control. PLAN: 1. Start metformin 500 mg t.i.d. 2. Start Januvia 100 mg daily. 3. Start Actos 50 mg daily. 4. Further adjustment according to blood glucose values. I prefer to not use any oral hypoglycemic agents or insulin if possible since the patient came in with hypoglycemia. I will follow the blood glucose values and further adjust. Thank you, Dr. Waller, for the courtesy of this consultation. Tez Musa M.D. DR: KO JOB#: [id number] CC: TRISTAN
[2017-08-14 09:23] LABS: ALANINE AMINOTRANSFERASE 32 U/L (12-78); ALBUMIN 3.4 G/DL (3.4-5.0); ALBUMIN/GLOBULIN RATIO 0.9 (1.0-2.7); ALKALINE PHOSPHATASE 57 U/L (46-116); ANION GAP 9 mmol/L (5-15); ASPARTATE AMINO TRANSFERASE 20 U/L (15-37); BILIRUBIN,TOTAL 0.3 MG/DL (0.2-1.0); BLOOD UREA NITROGEN 20 mg/dL (7-18); CALCIUM 9.6 MG/DL (8.5-10.1); CARBON DIOXIDE 25 MMOL/L (21-32); CHLORIDE 106 MMOL/L (98-107); CREATININE 0.8 MG/DL (0.55-1.30); POTASSIUM 4.2 MMOL/L (3.5-5.1); SODIUM 140 MMOL/L (136-145)
[2017-08-14] MEDS: Lisinopril 10mg tab ORAL SCH (09:48)
[2017-08-14] MEDS: Aspirin Baby 81mg ORAL SCH (09:49)
[2017-08-14] MEDS: Heparin 5000 units/ml inj SUBQ SCH (09:52)
--- NOTE | 2017-08-14 10:57 | Cardiology Report ---
APPROVED REPORT EXAM: Two-dimensional and M-mode echocardiogram with Doppler and color Doppler. INDICATION Acute ME M-Mode DIMENSIONS IVSd1.4 (0.7-1.1cm)Left Atrium (MM)2.6 (1.6-4.0cm) LVDd3.6 (3.5-5.6cm)Aortic Root2.2 (2.0-3.7cm) PWd1.4 (0.7-1.1cm)Aortic Cusp Exc.1.6 (1.5-2.0cm) IVSs2.1 cm LVDs2.1 (2.5-4.0cm) PWs2.2 cm . Normal left ventricular chamber size, systolic function and wall motion to extent visualized. Left ventricular ejection fraction estimated to be 60%. Moderate left ventricular hypertrophy by 2-D. Trace posterior pericardial fat or effusion. All other cardiac chamber sizes are within normal limits. Focal aortic valve sclerosis with adequate cusp excursion. moderatly Thickened mitral valve leaflets with normal excursion. Mitral annulus and aortic root calcification. pulmonic valve not well visualized . Normal tricuspid valve structure. IVC at normal size with physiologic collapse . A color flow and spectral Doppler study was performed and revealed: No aortic regurgitation. Trace mitral regurgitation. Mitral diastolic velocities suggest reduced left ventricular relaxation c/w mild LV diastolic dysfunction (Grade I ). Trace tricuspid regurgitation. Tricuspid systolic velocities suggests peak right ventricular systolic pressure of 23mmHg. No pulmonic regurgitation present .
[2017-08-14 12:01] VITALS: BP 119/67
--- NOTE | 2017-08-14 14:08 | Diagnostic Imaging Report ---
Indication: Altered mental status Technique: MRI the brain performed utilizing T1 sagittal, T2 axial, T1 FLAIR axial, T2 FLAIR axial, T2*GRE and diffusion axial images without gadolinium. Comparison: CT head 08/10/2017 Findings: No definite focus of restricted diffusion. Some diffusion signal hyperintensity at the periphery of the right temporal lobe noted which is likely artifactual as there is no definite corresponding dropout on ADC and no focal signal abnormality noted within these regions on T1/T2 or T2 FLAIR sequences. The sulci, ventricles and cisterns are prominent consistent with atrophy. Periventricular and supratentorial white matter T2 hyperintensity are seen without mass effect. There is no shift of midline structures. No significant extra-axial collections of fluid or blood are demonstrated. The sella and parasellar regions are unremarkable. Expected signal flow voids are seen of the vessels of the skull base. Visualized mastoid air cells and paranasal sinuses are unremarkable. No focal bony calvarium or soft tissue lesions are seen. IMPRESSION: Diffusion signal hyperintensity at the periphery of the right temporal lobe is likely artifactual as there is no definite corresponding dropout on ADC and no focal signal abnormality noted within this region on T1/T2 or T2 FLAIR sequences. Acute stroke is thought less likely. Correlate clinically. No evidence of acute intracranial hemorrhage, mass effect or midline shift. Atrophy and chronic senescent changes.
--- NOTE | 2017-08-14 15:08 | General Progress Note ---
Assessment/Plan Status: stable, progressing Subjective Date patient seen: Aug 14, 2017 Neurologic/Psychiatric: Reports: anxiety, depressed Allergies: Coded Allergies: No Known Allergies (Unverified , 08/10/17) Subjective dementia with behavioral disturbance Encephalopathy -Seroquel standing/prn -dc the sitter Objective Last 24 Hour Vital Signs Date Time Temp Pulse Resp B/P (MAP) Pulse Ox O2 Delivery O2 Flow Rate FiO2 08/14/17 12:01 97.3 71 20 119/67 94 97.3 08/14/17 12:00 69 08/14/17 09:49 97 140/77 08/14/17 09:48 140/77 08/14/17 08:00 97 08/14/17 08:00 97.0 70 19 140/77 96 Room Air 97.0 80 08/14/17 04:00 72 08/14/17 04:00 97.5 70 18 116/70 94 97.5 08/14/17 00:00 97.7 78 17 113/60 97 97.7 08/14/17 00:00 80 08/13/17 20:46 88 120/77 08/13/17 20:00 97.7 88 19 120/77 95 97.7 08/13/17 20:00 96 08/13/17 16:00 97.8 92 20 132/84 98 Room Air 97.8 08/13/17 16:00 77 Intake and Output 08/13/17 08/14/17 19:00 07:00 Intake Total 545 ml Balance 545 ml Intake Oral 490 ml IV Total 55 ml # Voids 6 # Bowel Movements 1 1 Laboratory Tests 08/14/17 07:50: White Blood Count 7.3, Red Blood Count 5.21, Hemoglobin 15.3, Hematocrit 47.4H, Mean Corpuscular Volume 91, Mean Corpuscular Hemoglobin 29.3, Mean Corpuscular Hemoglobin Concent 32.2, Red Cell Distribution Width 15.5H, Platelet Count 244, Mean Platelet Volume 6.5, Neutrophils (%) (Auto) 62.9, Lymphocytes (%) (Auto) 22.2, Monocytes (%) (Auto) 10.5H, Eosinophils (%) (Auto) 3.2H, Basophils (%) ( Auto) 1.2, Sodium Level 140, Potassium Level 4.2, Chloride Level 106, Carbon Dioxide Level 25, Anion Gap 9, Blood Urea Nitrogen 20H, Creatinine 0.8, Estimat Glomerular Filtration Rate , Glucose Level 188H, Calcium Level 9.6, Magnesium Level 1.7L, Total Bilirubin 0.3, Aspartate Amino Transf (AST/SGOT) 20, Alanine Aminotransferase (ALT/SGPT) 32, Alkaline Phosphatase 57, Troponin I 0.023, Total Protein 7.1, Albumin 3.4, Globulin 3.7, Albumin/Globulin Ratio 0.9L Height (Feet): 5 Height (Inches): 4.00 Weight (Pounds): 110 General Appearance: WD/WN, no apparent distress, alert, confused, agitated Elizabeth Dodd M.D. Aug 14, 2017 15:08
[2017-08-14] MEDS ORDERED: COREG12.5 MG ORAL (15:38)
[2017-08-14] MEDS ORDERED: TYLENOL325 MG ORAL (15:38)
[2017-08-14] MEDS ORDERED: ASPIRIN81 MG ORAL (15:38)
[2017-08-14] MEDS ORDERED: ACTOS15 MG ORAL (15:40)
[2017-08-14] MEDS ORDERED: LISINOPRIL10 MG ORAL (15:40)
[2017-08-14] MEDS ORDERED: NOVOLOG100 UNIT/3 SUBQ (15:42)
[2017-08-14] MEDS ORDERED: Tubing IV Secondary IV ONE (16:49)
[2017-08-14] MEDS ORDERED: NS 275ml ONE (16:49)
--- NOTE | 2017-08-14 17:30 | Progress Note ---
DATE: 08/13/2017 This is a late entry. SUBJECTIVE: The patient's mental condition is unchanged, has episodes of anxiety and agitation. The patient's son asked the patient has been restarted on Seroquel. The patient is restless and would like to be discharged home. MENTAL STATUS EXAMINATION: The patient is alert and oriented times self and place. Mood is anxious. Affect is constricted. Congruent with mood. Thought process is concrete. Thought content, no suicidal or homicidal ideation. ASSESSMENT: 1. Dementia with behavior disturbance. 2. Encephalopathy is resolved. PLAN: 1. The patient will be continued on current medication. 2. Provide the patient with reality orientation and supportive therapy . Elizabeth Dodd M.D. DR: Mattie JOB#: [id number] CC:
--- NOTE | 2017-08-14 22:15 | Progress Note ---
DATE: 08/14/2017 CARDIOLOGY PROGRESS NOTE SUBJECTIVE: The patient feels better. No chest pain or shortness of breath. Glucose parameters are improving. She had an MRI of the brain that revealed no acute process, but diffuse atrophy and artifactual area was felt to be present in the right temporal lobe. OBJECTIVE: VITAL SIGNS: Blood pressure 119/67, heart rate 71, respiratory rate 20. LUNGS: Clear. CARDIAC: Regular. ABDOMEN: Soft. EXTREMITIES: Without edema. LABORATORY DATA: White count 7, hemoglobin 15. Potassium 4.2. Magnesium 1.7. Troponin 0.023. IMPRESSION: 1. Acute myocardial ischemia, precipitated by hypoglycemic reaction. 2. Metabolic encephalopathy secondary to above. 3. Polypharmacy with diabetic regimen. 4. Type 2 diabetes mellitus, now with glucose controlled. 5. Cerebrovascular disease with mild dementia. PLAN: 1. Antiplatelet therapy. 2. Beta-emmie. 3. Angiotensin-converting enzyme inhibitor. 4. current diabetic regimen. 5. Titration of all medications as an outpatient. 6. We will follow. Victorino Waller M.D. DR: Tri JOB#: [id number] CC:
--- NOTE | 2017-08-16 10:09 | Discharge Summary ---
Discharge Summary Discharge Summary Discharge Summary DATE OF ADMISSION: 08/10/2017 DATE OF DISCHARGE: 08/14/2017 REASON FOR ADMISSION: 82 years old female with past medical history significant for diabetes mellitus requiring insulin , neuropathy, cerebrovascular accident with dementia, hypertension, rheumatoid arthritis, was brought from from home due to altered level of consciousness and behavioral abnormalities observed by family members. Urine toxicology screen was negative. WBC- 12.2. Urinalysis revealed moderate bacteria. Chest x-ray showed possible bilateral basilar infiltrates. Lactic acid -1.8, CT of the head revealed chronic age-related changes but no acute intracranial pathology. Troponin elevated -0.061. Magnesium -1.7 . EKG showed sinus tachycardia but no acute ischemic changes. Glucose -49. She was admitted with diagnosis of toxic metabolic encephalopathy, hypoglycemia, diabetes mellitus with neuropathy, hypomagnesemia, acute myocardial ischemia possible myocardial infarction, leukocytosis, possible urinary tract infection,. CONSULTANTS: residential living assistant psychiatrist Information Systems Professor Dr. Musa [facility]: Patient admitted to telemetry floor. All anti-glycemic medications were initially on hold. Patient was started on the IV fluids with dextrose. Endocrinology evaluation was requested. Serial troponin were trended. Antiplatelet therapy with aspirin started along with a beta emmie. DVT prophylaxis provided. Patient started on empiric antibiotic. Electrolytes were corrected. Renal parameters and electrolytes were closely monitored and nephrotoxins were avoided. Antihypertensive regimen was titrated to keep blood pressure under control. Information Systems Professor seen and evaluated the patient. Blood sugar stabilized. Patient slowly started on oral anti-glycemic regimen under close supervision of project product manager and sliding scale of insulin on as needed basis. Lantus stopped. Hemoglobin A1c 6.6 , at goal. Serial troponin were closely monitored. The next troponin still slightly elevated -0.069, but the next two down to normal. Echocardiogram revealed preserved ejection fraction of 60% with normal left ventricular chamber size, systolic function and wall motion. Right ventricular systolic pressure of 23. According to residential living assistant, acute myocardial ischemia was precipitated by hypoglycemic reaction. MRI of the brain did not revealed evidence of acute intracranial hemorrhage, mass effect or midline shift. Atrophy and chronic senescent changes were noted Patient was initially on empiric antibiotics. Blood culture were negative. Urine culture revealed mixed urogenital contaminants. No leukocytosis ,no fever. Antibiotics discontinued. Blood pressure was managed with beta emmie and BARBY inhibitor, it remained stable. Psychiatrist seen and evaluated the patient. Patient with evidence of behavioral disturbances. Patient initially had sitter for safety. Psychiatrist diagnosed patient with dementia with behavioral disturbances and encephalopathy . Patient was started on Zyprexa. Sitter was just discontinued. Reality orientation provided. Mental status return back to baseline. Encephalopathy resolved likely was due to hypoglycemia. Patient was stable for discharge home. FINAL DIAGNOSES: Metabolic encephalopathy secondary to hypoglycemia Acute myocardial ischemia, precipitated by hypoglycemic reaction. 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 DISCHARGE INSTRUCTIONS: Patient was discharged home. Patient to follow-up with a p Primary care provider in one week. I have been assigned to dictate discharge summary for this account. I was not involved in the patient's management. Cara Patino NP ([place]) August 16, 2017 10:09
== END 2017-08-14 16:50 | disposition home or self-care (01) | DRG 637 ==
LOC: EDBD 13:59 → EMR 14:20 → EDBEDREQ 15:51 → 2E 16:25 → EDBEDREQ 16:34 → 2E 18:48
DX: E11.649 Type 2 diabetes mellitus with hypoglycemia without coma (principal); G93.41 Metabolic encephalopathy; F01.51 Vascular dementia, unspecified severity, with behavioral disturbance; I51.3 Intracardiac thrombosis, not elsewhere classified; M06.9 Rheumatoid arthritis, unspecified; I11.9 Hypertensive heart disease without heart failure; Z79.4 Long term (current) use of insulin; R00.0 Tachycardia, unspecified; E83.42 Hypomagnesemia; E11.42 Type 2 diabetes mellitus with diabetic polyneuropathy
CPT/HCPCS: 36415; 70450; 70551; 71045; 80048; 80053; 80061; 80307; 81003; 82550; 82553; 82962; 83036; 83605; 83735; 83880; 84439; 84443; 84480; 84484; 85025; 85610; 85730; 87040; 87086; 93005; 93306; 99285; J1815; J8499